=== PATIENT | male | born 1955 | race Caucasian/White ===

== ENCOUNTER 2019-01-27 04:04 | Emergency (ER) | payer BC ==
--- NOTE | 2019-01-27 04:31 | ED ---
GI/ HPI - HPI Summary HPI Summary: This patient is a 63 year old male presenting to [facility] with a chief complaint of right flank pain since 2 hours ago. The patient went to the bathroom and had a small bowel movement. He states the pain radiates to his back. The patient rates his pain 7/10 in severity upon arrival, but now rates his pain 1/10. The patient has a Hx of kidney stones and this felt similar so he wanted to get checked. - History of Current Complaint Chief Complaint: EDFlankPain Stated Complaint: "RT FLANK PAIN" PER PT Hx Obtained From: Patient Onset/Duration: Started Hours Ago Timing: Constant Severity: Moderate Current Severity: None Pain Intensity: 7 Location of Pain: Flank - Allergy/Home Medications Allergies/Adverse Reactions: Allergies Allergy/AdvReac Type Severity Reaction Status Date / Time simvastatin [From Zocor] Allergy See Comment Verified 01/27/19 04:09 PMH/Surg Hx/FS Hx/Imm Hx Endocrine/Hematology History: Denies: Hx Diabetes, Hx Systemic Lupus Erythematosus, Hx Thyroid Disease Cardiovascular History: Reports: Hx Hypercholesterolemia Denies: Hx Congestive Heart Failure, Hx Deep Vein Thrombosis, Hx Hypertension , Hx Myocardial Infarction, Hx Pacemaker/ICD Respiratory History: Reports: Hx Pulmonary Embolism, Other Respiratory Problems/ Disorders - HX OF PE LAST YEAR Denies: Hx Asthma, Hx Chronic Obstructive Pulmonary Disease (COPD), Hx Lung Cancer GI History: Denies: Hx Cirrhosis, Hx Gall Bladder Disease, Hx Gastrointestinal Bleed, Hx Ulcer, Hx Urosepsis History: Reports: Hx Kidney Stones, Hx Renal Disease - STONE PASSED 11-11-14 Denies: Hx Dialysis Musculoskeletal History: Reports: Hx Arthritis - OSTEOARTHRITIS RIGHT FOOT Denies: Hx Rheumatoid Arthritis, Hx Osteoporosis Sensory History: Reports: Hx Contacts or Glasses Denies: Hx Hearing Aid Opthamlomology History: Reports: Hx Contacts or Glasses Neurological History: Denies: Hx Dementia, Hx Migraine, Hx Seizures, Hx Transient Ischemic Attacks (TIA) Psychiatric History: Denies: Hx Anxiety, Hx Depression, Hx Schizophrenia, Hx Bipolar Disorder - Cancer History Hx Chemotherapy: No - Surgical History Surgery Procedure, Year, and Place: 1998 ORIF RIGHT GREAT [place]E, [facility] [place] 2013 RT. ANKLE. Right Ankle - 09/21/14 Hx Anesthesia Reactions: Yes - NAUSEA Infectious Disease History: No Infectious Disease History: Reports: Hx Shingles - 04/24, Traveled Outside the [place] in Last 30 Days - [facility] Denies: Hx Clostridium Difficile, Hx Hepatitis, Hx Human Immunodeficiency Virus (HIV), Hx of Known/Suspected MRSA, Hx Tuberculosis, Hx Known/Suspected VRE , Hx Known/Suspected VRSA, History Other Infectious Disease - Family History Known Family History: Negative: Cardiac Disease - Social History Alcohol Use: Rare Substance Use Type: Reports: None Hx Tobacco Use: No Smoking Status (MU): Never Smoked Tobacco Have You Smoked in the Last Year: No Review of Systems Negative: Fever Positive: flank pain All Other Systems Reviewed And Are Negative: Yes Physical Exam - Summary Physical Exam Summary: VITAL SIGNS: Reviewed. GENERAL: Patient is a well-developed and nourished MALE who is lying comfortable in the stretcher. Patient is not in any acute respiratory distress. HEAD AND FACE: No signs of trauma. No ecchymosis, hematomas or skull depressions. No sinus tenderness. EYES: PERRLA, EOMI x 2, No injected conjunctiva, no nystagmus. EARS: Hearing grossly intact. Ear canals and tympanic membranes are within normal limits. MOUTH: Oropharynx within normal limits. NECK: Supple, trachea is midline, no adenopathy, no JVD, no carotid bruit, no c- spine tenderness, neck with full ROM CHEST: Symmetric, no tenderness at palpation LUNGS: Clear to auscultation bilaterally. No wheezing or crackles. CVS: Regular rate and rhythm, S1 and S2 present, no murmurs or gallops appreciated. ABDOMEN: Soft, non-tender. No signs of distention. No rebound no guarding, and no masses palpated. Bowel sounds are normal. EXTREMITIES: FROM in all major joints, no edema, no cyanosis or clubbing. NEURO: Alert and oriented x 3. No acute neurological deficits. Speech is normal and follows commands. SKIN: Dry and warm Triage Information Reviewed: Yes Vital Signs On Initial Exam: Initial Vitals Temp Pulse Resp BP Pulse Ox 98.6 F 65 16 177/86 96 01/27/19 04:06 01/27/19 04:06 01/27/19 04:06 01/27/19 04:06 01/27/19 04:06 Vital Signs Reviewed: Yes Diagnostics - Vital Signs Vital Signs Temp Pulse Resp BP Pulse Ox 01/27/19 04:06 98.6 F 65 16 177/86 96 - Laboratory Result Diagrams: 01/27/19 05:06 01/27/19 05:06 Lab Statement: Any lab studies that have been ordered have been reviewed, and results considered in the medical decision making process. - CT Abdomen/Pelvis CT Interpretation Completed By: Radiologist Summary of CT Findings: 1. Two adjacent 3 to 3.5 mm right UVJ stones with hydronephrosis and hyrdoureter. 2. Additional multiple nonobstructing bilateral renal stones. 3. Incompletely characterized subcentimeter hypodense lesions in the bilareral kidneys. 4. A small hiatal hernia. ED Provider has reviewed this report. GIGU Course/Dx - Course Course Of Treatment: This patient is a 63 year old male presenting to [facility] with a chief complaint of right flank pain since [address] Abd/Pel reveals 1. Two adjacent 3 to 3.5 mm right UVJ stones with hydronephrosis and hyrdoureter. 2. Additional multiple nonobstructing bilateral renal stones. 3. Incompletely characterized subcentimeter hypodense lesions in the bilareral kidneys. 4. A small hiatal hernia. A plan for discharge was discussed with the patient and he is agreeable with this plan. - Diagnoses Provider Diagnoses: Right ureteral stone, Renal colic Discharge - Sign-Out/Discharge Documenting (check all that apply): Patient Departure - Discharge Patient Received Moderate/Deep Sedation with Procedure: No - Discharge Plan Condition: Stable Disposition: HOME Patient Education Materials: Renal Colic (ED), Kidney Stones (ED) Referrals: Lewis Paul MD [Medical Doctor] - 1 Day Additional Instructions: Follow up with Urologist tomorrow. Return to ED with any new or worsening symptoms. - Attestation Statements Document Initiated by Scribe: Yes Documenting Scribe: Tomas Kim Provider For Whom Qianaibluzma is Documenting (Include Credential): Palak Coburn MD Scribe Attestation: I, Tomas Kim, anted for Palak Coburn MD on 01/27/19 at 0620. Status of Scribe Document: Ready
[2019-01-27 04:39] LABS: Urine Appearance Clear; Urine Bilirubin Negative (Negative); Urine Blood Negative (Negative); Urine Color Yellow; Urine Glucose Negative (Negative); Urine Ketones Negative (Negative); Urine Nitrite Negative (Negative); Urine Protein Negative (Negative); Urine Specific Gravity 1.012 (1.010-1.030); Urine Urobilinogen Negative (Negative)
[2019-01-27 05:14] LABS: ABS Basophils 0.1 10^3/ul (0-0.2); ABS Eosinophils 0.1 10^3/ul (0-0.6); ABS Lymphocytes 1.2 10^3/ul (1.0-4.8); ABS Monocytes 0.5 10^3/ul (0-0.8); ABS Neutrophils 3.9 10^3/ul (1.5-7.7); Eosinophil % 1.3 %; Hematocrit 45 % (42-52); Hemoglobin 15.4 g/dL (14.0-18.0); Lymphocyte % 20.8 %; Mean Corpuscular HGB Conc 34 g/dL (31-36); Mean Corpuscular Hemoglobin 29 pg (27-31); Mean Corpuscular Volume 84 fL (80-94); Nucleated Red Blood Cells % 0.1; Platelet Count 201 10^3/uL (150-450); Red Blood Count 5.33 10^6 /uL (4.18-5.48); Red Cell Distribution Width 14 % (10.5-15); White Blood Count 5.7 10^3/uL (3.5-10.8)
[2019-01-27 06:17] LABS: Albumin 4.2 g/dL (3.2-5.2); Albumin/Globulin Ratio 1.4 (1-3); BUN/Creatinine Ratio 16.1 (8-20); C Reactive Protein 1.94 mg/L (<8.01); Calcium 9.6 mg/dL (8.6-10.3); EGFR African American 63.7 (>60); EGFR Non-African American 52.7 (>60); Globulin 2.9 g/dL (2-4); Potassium 3.8 mmol/L (3.5-5.0); Total Bilirubin 0.6 mg/dL (0.2-1.0); Total Protein 7.1 g/dL (6.4-8.9)
[2019-01-27 06:47] VITALS: BP 153/93
== END 2019-01-27 06:45 | disposition home or self-care (01) ==
LOC: ED 04:04
DX: N13.2 Hydronephrosis with renal and ureteral calculous obstruction (principal); K44.9 Diaphragmatic hernia without obstruction or gangrene
CPT/HCPCS: 36415; 74176; 80053; 81003; 82150; 83690; 85025; 86140; 99282

== ENCOUNTER 2022-03-28 07:30 | Observation (INO) ==
[~2022-03-28 07:30] MED LIST: Buffered Lidocaine 1% SYRIN 1 ml INTRADERM ONE; Lactated Ringers 1000 ml BAG 1,000 ML IV SCH
[2022-03-28] MEDS ORDERED: ceFAZolin 2 GM PREMIX 2 GM/50 ML BAG ONE (08:08)
[2022-03-28] MEDS ORDERED: fentaNYL 100 mcg/2 ml 50 MCG/ML VIAL ONE ×2 (10:06→15:36)
[2022-03-28] MEDS ORDERED: Midazolam 2 mg/2 ml VIAL 1 mg/ml 2 ml VIAL (2 mg) ONE (10:06)
[2022-03-28] MEDS ORDERED: Lidocaine 2% PF 5 ML VIAL ONE (10:06)
[2022-03-28] MEDS ORDERED: Midazolam 5 mg/5 ml VIAL 1 mg/ml 5 ml VIAL (5 mg) ONE (11:20)
[2022-03-28] MEDS ORDERED: Bupivacaine 0.5% PF 10 ML SDV VIAL INJ ONE (11:35)
[2022-03-28] MEDS ORDERED: Naloxone 0.4 mg VIAL 0.4 mg/ml 1 ml VIAL IV PRN (12:00)
[2022-03-28] MEDS ORDERED: Ondansetron 4 mg VIAL 2 MG/ML 2 ml VIAL IV PRN ×2 (12:00→12:31)
[2022-03-28] MEDS ORDERED: Morphine 2 MG/ML SYRINGE IV PRN (12:31)
[2022-03-28] MEDS ORDERED: Lactulose 30 ml UDC PO PRN (12:31)
[2022-03-28] MEDS ORDERED: Ondansetron ODT 4 mg TAB 4 MG TAB PO PRN (12:31)
[2022-03-28] MEDS ORDERED: Magnesium Hydroxide LIQ 30 ML UDC PO PRN (12:31)
[2022-03-28] MEDS ORDERED: Dexamethasone IV 4 MG/ML VIAL 1 ml VIAL ONE ×3 (12:53)
[2022-03-28] MEDS ORDERED: Acetaminophen IV 1 GM/100ML 100 ML IV ONE (12:54)
[2022-03-28] MEDS ORDERED: Ondansetron 4 mg VIAL 2 MG/ML 2 ml VIAL ONE (12:54)
[2022-03-28] MEDS ORDERED: Lactated Ringers 1000 ml BAG 1,000 ML IV SCH (13:00)
[2022-03-28] MEDS ORDERED: ceFAZolin 1 GM ADVAN 1 GM in NS 0.9% 50 ML 50 ML IVPB SCH (13:00)
[2022-03-28] MEDS ORDERED: Succinylcholine 200 mg VIAL 20 mg/ml 10 ml VIAL (200 mg) ONE (13:13)
[2022-03-28] MEDS ORDERED: Rocuronium 50 mg VIAL 10 mg/ml 5 ml VIAL (50 mg) ONE (14:10)
[2022-03-28] MEDS ORDERED: Phenylephrine IV 10 MG/ML 1 ml VIAL ONE (14:33)
[2022-03-28] MEDS ORDERED: Sugammadex 500 MG/5 ML 5 ml VIAL IV PUSH ONE (14:33)
[2022-03-28] MEDS: fentaNYL 100 mcg/2 ml 50 MCG/ML VIAL IV PRN ×2 (15:41→16:09)
[2022-03-28] MEDS ORDERED: Dextrose 50% Syringe 50 ml 25 GM/50 ML SYRINGE IV PUSH PRN (16:59)
[2022-03-28] MEDS: ceFAZolin 1 GM ADVAN 1 GM in NS 0.9% 50 ML 50 ML IVPB SCH (20:05)
[2022-03-28] MEDS: Magnesium Hydroxide LIQ 30 ML UDC PO SCH (22:22)
[2022-03-29 06:00] LABS: ABS Lymphocytes 0.7 10^3/ul (1.0-4.8); ABS Monocytes 0.7 10^3/ul (0-0.8); ABS Neutrophils 7.7 10^3/ul (1.5-7.7); Hematocrit 38 % (42-52); Hemoglobin 12.7 g/dL (14.0-18.0); Lymphocyte % 7.9 %; Mean Corpuscular HGB Conc 34 g/dL (31-36); Mean Corpuscular Hemoglobin 28 pg (27-31); Mean Corpuscular Volume 84 fL (80-94); Platelet Count 179 10^3/uL (150-450); Red Blood Count 4.47 10^6 /uL (4.18-5.48); Red Cell Distribution Width 15 % (10-15); White Blood Count 9.1 10^3/uL (3.5-10.8)
[2022-03-29 06:21] LABS: Calcium 9.3 mg/dL (8.6-10.3); Potassium 4.8 mmol/L (3.5-5.0); eGFR CKD-EPI 59.3 (>60)
[2022-03-29] MEDS: ceFAZolin 1 GM ADVAN 1 GM in NS 0.9% 50 ML 50 ML IVPB SCH ×2 (06:21→11:46)
[2022-03-29] MEDS: Magnesium Hydroxide LIQ 30 ML UDC PO SCH (08:13)
[2022-03-29] MEDS ORDERED: Vitamin THERAPEUTIC TAB PO SCH (09:00)
[2022-03-29 11:16] VITALS: BP 129/75
== END 2022-03-29 13:12 | disposition home or self-care (01) ==
LOC: INTOOBSV 08:17 → AA 08:17 → SSU 12:31
PROVIDERS: ADMIT Orthopaedic Surgery Adult Reconstructive Orthopaedic Surgery; ATTEND Orthopaedic Surgery Adult Reconstructive Orthopaedic Surgery